=== PATIENT | female | born 1985 | race Caucasian/White ===

== ENCOUNTER 2021-10-24 00:30 | Inpatient (IN) | payer OTHER ==
[~2021-10-24] VITALS: Ht 167.6 cm; Wt 85.7 kg
== END 2021-10-24 02:05 | disposition home or self-care (01) | DRG 560 ==
LOC: MFCC 00:30
PROVIDERS: ADMIT Obstetrics & Gynecology; ATTEND Obstetrics & Gynecology
PROC: 10E0XZZ Delivery of Products of Conception, External Approach (ICD-10-PCS; principal; 2021-10-24)
DX: O80 Encounter for full-term uncomplicated delivery (principal); Z37.0 Single live birth; Z3A.39 39 weeks gestation of pregnancy